=== PATIENT | female | born 1995 | race Caucasian/White ===

== ENCOUNTER 2021-08-30 21:49 | Observation (INO) | payer OTHER ==
[2021-08-30] MEDS ORDERED: Ondansetron 4 MG Tab.DIS PO ONE (22:03)
[2021-08-30] MEDS ORDERED: HYDROmorphone 0.5 MG/0.5 ML Syringe IM ONE (22:03)
[2021-08-30] MEDS ORDERED: Sodium Chloride 0.9% 10 ML Syringe FLUSH PRN (22:26)
[2021-08-30 22:56] LABS: CHLORIDE,CL 106 mmol/L (98-107); SODIUM,NA 141 mmol/L (136-145)
[2021-08-30 22:57] LABS: ANION GAP 16.2 meq/L (7-15); ESTIMATED GFR 125 mL/min (>=60)
[2021-08-30] MEDS ORDERED: Midazolam 1 MG/ML 2 ML SDV IVPUSH ONE (23:14)
[2021-08-30] MEDS ORDERED: fentaNYL 100 MCG/2 ML SDV IVPUSH ONE (23:15)
[2021-08-30] MEDS ORDERED: Acetaminophen 325 MG Tab PO ONE (23:50)
[2021-08-30] MEDS ORDERED: oxyCODONE 5 MG Tab PO ONE (23:50)
[2021-08-31] MEDS ORDERED: Acetaminophen 325 MG Tab PO PRN (00:02)
[2021-08-31] MEDS ORDERED: oxyCODONE 5 MG Tab PO PRN (00:02)
[2021-08-31] MEDS ORDERED: Ondansetron 4 MG/2 ML SDV IVPUSH PRN (00:02)
[2021-08-31] MEDS ORDERED: Morphine 2 MG/ML SYRINGE IVPUSH PRN (00:02)
[2021-08-31] MEDS ORDERED: Docusate Sodium 100 MG Cap PO PRN (00:10)
[2021-08-31] MEDS ORDERED: traMADol 50 MG Tab PO ONE (08:35)
[2021-08-31] MEDS: Acetaminophen 325 MG Tab PO SCH ×2 (09:28→13:01)
[2021-08-31 12:25] VITALS: BP 118/63; PULSE 68
== END 2021-08-31 14:00 | disposition home or self-care (01) ==
LOC: LL.ED 21:49 → LL.MS 23:40
PROVIDERS: ADMIT Emergency Medicine; ATTEND Emergency Medicine
DX: S82.841A Displaced bimalleolar fracture of right lower leg, initial encounter for closed fracture (principal); Z79.899 Other long term (current) drug therapy; Z79.891 Long term (current) use of opiate analgesic; V80.010A Animal-rider injured by fall from or being thrown from horse in noncollision accident, initial encounter; Y93.52 Activity, horseback riding
CPT/HCPCS: 27810; 36415; 73600-RT; 73700-RT; 80053; 84703; 85025; 96372; 96374; 97161-GP; 99284-25; A9270-GY; G0378; J1170; J2250; J3010; J3490